=== PATIENT | female | born 1970 | race Caucasian/White ===

== ENCOUNTER 2016-06-16 11:22 | Emergency (ER) | payer MEDICAID, OTHER ==
[~2016-06-16] VITALS: Ht 154.9 cm; Wt 60.0 kg
[~2016-06-16 11:22] MED LIST: ATOR40TA PO; EFFE150C PO; FIORIC PO; LEVO.05 PO
[2016-06-16 11:24] VITALS: BP 182/112; PULSE 76; RESP 14; TEMP 97.7; O2SAT 99
[2016-06-16] MEDS ORDERED: SIMV40TA PO (11:47)
[2016-06-16] MEDS ORDERED: LEVO.05 PO (11:47)
[2016-06-16] MEDS ORDERED: BUTA1CAP PO (11:47)
[2016-06-16] MEDS ORDERED: VENL100T PO (11:47)
[2016-06-16] MEDS ORDERED: KETOROLAC TROMETHAMINE 60 MG/2 ML (IM) VIAL IM ONE (12:00)
[2016-06-16] MEDS ORDERED: NAPR500 PO (12:31)
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
== END 2016-06-16 12:48 | disposition home or self-care (01) ==
LOC: NEPB 11:22
DX: S20.219A Contusion of unspecified front wall of thorax, initial encounter (principal); F17.210 Nicotine dependence, cigarettes, uncomplicated; Y04.2XXA Assault by strike against or bumped into by another person, initial encounter
CPT/HCPCS: 71020; 96372; 99284; J1885

== ENCOUNTER 2016-09-25 09:01 | Observation (INO) | payer MEDICAID ==
[~2016-09-25] VITALS: Ht 154.9 cm; Wt 55.0 kg
[2016-09-25] VITALS (7 sets, daily range): BP systolic 123–151; BP diastolic 64–101; PULSE 75–114; RESP 16–20; TEMP 97.3–98.1; O2SAT 97–100
[~2016-09-25 09:01] MED LIST changes: -ATOR40TA PO; +BUTA1CAP PO; -EFFE150C PO; -FIORIC PO; +NAPR500 PO; +SIMV40TA PO; +VENL100T PO
[2016-09-25 09:57] LABS: AMPHETAMINE, URINE NEG (NEG); BARBITURATES, URINE POS (NEG); COCAINE, URINE POS (NEG)
[2016-09-25 10:06] LABS: AUTOMATED NEUTROPHIL # 3.5 TH/MM3 (1.8-7.7); BASOPHIL % 0.3 % (0.0-2.0); EOSINOPHIL % 0.2 % (0.0-4.0); HEMATOCRIT 37.7 % (35.0-46.0); HEMO FLAGS DIFF FINAL; LYMPH % 42.4 % (9.0-44.0); MEAN CELL VOLUME 90.5 FL (80.0-100.0); MEAN CORPUSCULAR HEMOGLOBIN 31.1 PG (27.0-34.0); MEAN CORPUSCULAR HGB CONC 34.4 % (32.0-36.0); MONO % 7.3 % (0.0-8.0); NEUT % 49.8 % (16.0-70.0); PLATELET COUNT 245 TH/MM3 (150-450); RED BLOOD COUNT 4.16 MIL/MM3 (4.00-5.30); RED CELL DISTRIBUTION WIDTH 13.4 % (11.6-17.2); WHITE BLOOD COUNT 7.1 TH/MM3 (4.0-11.0)
[2016-09-25 10:27] LABS: ACETAMINOPHEN 51.2 MCG/ML (10.0-30.0); ALT (GPT) 20 U/L (10-53); ANION GAP 9 MEQ/L (5-15); AST (GOT) 17 U/L (15-37); BICARBONATE 24.4 MEQ/L (21.0-32.0); BLOOD UREA NITROGEN 17 MG/DL (7-18); CHLORIDE 109 MEQ/L (98-107); GLOMERULAR FILTRATION RATE 64 ML/MIN (>89); POTASSIUM 3.4 MEQ/L (3.5-5.1); SODIUM (NA) 142 MEQ/L (136-145)
[2016-09-25 10:29] LABS: ALKALINE PHOSPHATASE 69 U/L (45-117); PHENOBARBITAL LESS THAN 2.1 MCG/ML (15.0-40.0); TOTAL BILIRUBIN ADULT 0.4 MG/DL (0.2-1.0)
[2016-09-25] MEDS ORDERED: LORazepam 2 MG/ML VIAL IM ONE (10:30)
--- NOTE | 2016-09-25 10:48 | PD ---
HPI Chief Complaint: Psychiatric Symptoms Time Seen by Provider: 09:19 Travel History International Travel<30 days: No Contact w/Intl Traveler<30days: No Traveled to known affect area: No History of Present Illness HPI This patient is a 46 y.o. white female who comes to the ED today under a Barrientos Act. Her H&P is limited secondary to disorganized behavior and unclear speech. She was mildly agitated and incoherent for much of the exam. She says her came home yesterday with crack cocaine and they had a disagreement over it. She admits to last using this substance last night. She says her asked her to go to sleep and she refused, causing a disagreement and him to call the police. She also repeatedly stated that her and mom were trying to get her in trouble. A Barrientos Act was issued, but she denies suicidal or homicidal ideation at this time. She also denies IVDA since this past August. She also denies alcohol and other illicit drug use. Denies history of medical illness, medication use and allergies. [facility] Past Medical History Narrative Medical N/C Medical History: Denies Significant Hx Bipolar Disorder: Yes Anxiety: Yes Depression: Yes Cardiovascular Problems: Yes (MVP) High Cholesterol: Yes Hiatal Hernia: Yes ?: Not : 5 Para: 3 Miscarriage: 1 : 1 Tubal Ligation: Yes Past Surgical History Abdominal Surgery: Yes (HIATAL HERNIA REPAIR) Appendectomy: Yes Cholecystectomy: Yes Other Surgery: Yes (bilateral tubal ligation) Social History Alcohol Use: No Tobacco Use: Yes (1/2 ppd) Substance Use: No (COCAINE (LAST NIGHT) MARIJUANA) Allergies-Medications (Allergen,Severity, Reaction): Coded Allergies: Keflex (Verified Allergy, Intermediate, HIVES, 06/16/16) Reported Meds & Prescriptions Reported Meds & Active Scripts Active Reported Effexor (Venlafaxine HCl) 100 Mg Tab 300 Mg PO DAILY Synthroid (Levothyroxine Sodium) 50 Mcg Tab 50 Mcg PO DAILY Simvastatin 40 Mg Tab 40 Mg PO HS Fioricet (Aykxcpsbat-Opnbkesrmxgxo-Seztbstu) 50-300-40 Mg Cap 1 Cap PO Q6H PRN Review of Systems Except as stated in HPI: all other systems reviewed are Neg Physical Exam Narrative GENERAL: Alert and oriented to person, place and time. Agitated, constantly moving during exam. Incoherent speech. SKIN: Warm and dry. HEAD: Atraumatic. Normocephalic. EYES: Pupils equal and round. No scleral icterus. No injection or drainage. ENT: No nasal bleeding or discharge. Mucous membranes pink and moist. NECK: Trachea midline. No JVD. Tachycardia noted upon auscultation. CARDIOVASCULAR: Regular rate and rhythm. RESPIRATORY: No accessory muscle use. Clear to auscultation. Breath sounds equal bilaterally. GASTROINTESTINAL: Abdomen soft, non-tender, nondistended. Hepatic and splenic margins not palpable. MUSCULOSKELETAL: Extremities without clubbing, cyanosis, or edema. No obvious deformities. NEUROLOGICAL: Awake and alert. No obvious cranial nerve deficits. Motor grossly within normal limits. Five out of 5 muscle strength in the arms and legs. Normal speech. PSYCHIATRIC: Appropriate mood and affect; insight and judgment normal. Data Data Last Documented VS Vital Signs Date Time Temp Pulse Resp B/P Pulse Ox O2 Delivery O2 Flow Rate FiO2 09/25/16 11:24 102 16 151/88 99 Room Air 09/25/16 09:10 98.1 Orders Complete Blood Count With Diff (09/25/16 09:20) Comprehensive Metabolic Panel (09/25/16 09:20) Psych Screen (09/25/16 09:20) Phenobarbital (09/25/16 09:20) Drug Screen, Random Urine (09/25/16 09:20) Alcohol (Ethanol) (09/25/16 09:20) Salicylates (Aspirin) (09/25/16 09:20) Tylenol (Acetaminophen) (09/25/16 09:20) Lorazepam Inj (Ativan Inj) (09/25/16 10:30) Admit Order (Ed Use Only) (09/25/16 11:40) Labs Laboratory Tests Test 09/25/16 09/25/16 09:30 09:45 Urine Opiates Screen NEG Urine Barbiturates Screen POS Urine Amphetamines Screen NEG Urine Benzodiazepines Screen NEG Urine Cocaine Screen POS Urine Cannabinoids Screen POS White Blood Count 7.1 TH/MM3 Red Blood Count 4.16 MIL/MM3 Hemoglobin 13.0 GM/DL Hematocrit 37.7 % Mean Corpuscular Volume 90.5 FL Mean Corpuscular Hemoglobin 31.1 PG Mean Corpuscular Hemoglobin 34.4 % Concent Red Cell Distribution Width 13.4 % Platelet Count 245 TH/MM3 Mean Platelet Volume 9.6 FL Neutrophils (%) (Auto) 49.8 % Lymphocytes (%) (Auto) 42.4 % Monocytes (%) (Auto) 7.3 % Eosinophils (%) (Auto) 0.2 % Basophils (%) (Auto) 0.3 % Neutrophils # (Auto) 3.5 TH/MM3 Lymphocytes # (Auto) 3.0 TH/MM3 Monocytes # (Auto) 0.5 TH/MM3 Eosinophils # (Auto) 0.0 TH/MM3 Basophils # (Auto) 0.0 TH/MM3 CBC Comment DIFF FINAL Differential Comment Sodium Level 142 MEQ/L Potassium Level 3.4 MEQ/L Chloride Level 109 MEQ/L Carbon Dioxide Level 24.4 MEQ/L Anion Gap 9 MEQ/L Blood Urea Nitrogen 17 MG/DL Creatinine 0.95 MG/DL Estimat Glomerular Filtration 64 ML/MIN Rate Random Glucose 123 MG/DL Calcium Level 9.4 MG/DL Total Bilirubin 0.4 MG/DL Aspartate Amino Transf 17 U/L (AST/SGOT) Alanine Aminotransferase 20 U/L (ALT/SGPT) Alkaline Phosphatase 69 U/L Total Protein 7.7 GM/DL Albumin 4.0 GM/DL Salicylates Level 3.6 MG/DL Acetaminophen Level 51.2 MCG/ML Phenobarbital Level LESS THAN 2.1 MCG/ML Ethyl Alcohol Level LESS THAN 3 MG/DL MDM Medical Decision Making Medical Screen Exam Complete: Yes Emergency Medical Condition: Yes Medical Record Reviewed: Yes Differential Diagnosis Altered mental status/psychosis due to infection/environmental exposure/ metabolic abnormality, polypharmacy, alcohol abuse/intoxication, illicit or prescribed drug abuse, malingering/secondary gain, non-organic psychiatric disease Narrative Course CBC & BMP Diagram 09/25/16 09:45 LFTs: normal UA: no UTI U Drug Screen: positive for barbiturates, cocaine and cannabinoids APAP 51.2 Salicylates: unremarkable EtOH < 3 Patient has an elevated Tylenol level. At 10:46 AM she appears agitated though reasonably cooperative. She states she last took the Fioricet which she takes daily at 5 PM last night, approximately 17.5 hours prior. Her abdominal exam is benign and as we can see the LFTs are normal. Given the fact that she is a poor story and presents with multiple drug intoxication initiation of N- acetylcysteine is considered indicated. She is hemodynamically stable and management by the hospitalist service with telemetry is considered appropriate at this time. D/w Dr Santos for [facility]. Critical Care Narrative Aggregate critical care time was 35 minutes. Time to perform other separately billable procedures was not included in the critical care time. My time did not include minutes spent treating any other patients simultaneously or on activities that did not directly contribute to the patient's treatment. The services I provided to this patient were to treat and/or prevent clinically significant deterioration that could result in: Multiorgan failure, liver failure I provided critical care services requiring my management, as noted below: Chart data review, documentation time, medication orders and management, vital sign assessments/reviewing monitor data, ordering and reviewing lab tests, ordering and interpreting/reviewing x-rays and diagnostic studies, care of the patient and discussion of the patient with the admitting physicians. Diagnosis Primary Impression: Tylenol toxicity Qualified Code: T39.1X4A - Tylenol toxicity, undetermined intent, initial encounter Additional Impressions: Polysubstance abuse Suicidal ideation Admitting Information Admitting Physician Requests: Admit Maximilian Lebron MD Sep 25, 2016 10:48
[2016-09-25] MEDS ORDERED: WATER IV SCH ×2 (11:45)
[2016-09-25] MEDS ORDERED: ACETYLCYSTEINE IV SCH ×6 (11:45→16:45)
[2016-09-25] MEDS ORDERED: DEXTROSE 5% IV SCH ×6 (11:45→16:45)
[2016-09-25] MEDS ORDERED: SENNOSIDES 8.6 MG TAB PO PRN (12:00)
[2016-09-25] MEDS ORDERED: BISACODYL 10 MG SUPP RECTAL PRN (12:00)
[2016-09-25] MEDS ORDERED: LACTULOSE SYRUP 20 GM/30 ML CUP PO PRN (12:00)
[2016-09-25] MEDS ORDERED: SODIUM CHLORIDE 0.9% FLUSH 10 ML FLUSH IV FLUSH PRN (12:00)
[2016-09-25] MEDS ORDERED: MAGNESIUM HYDROXIDE SUSP 30 ML CUP PO PRN (12:00)
[2016-09-25] MEDS ORDERED: ONDANSETRON HCL 4 MG/2 ML VIAL IVP PRN (12:00)
--- NOTE | 2016-09-25 12:27 | HHI.HP ---
[facility] Service [facility] Hospitalists Primary Care Physician Thor Sandoval Admission Diagnosis Tylenol Toxicity, PSA, Suicidal Ideation Diagnoses: Chief Complaint: agitation, Barrientos Act Travel History International Travel<30 Days: No Contact w/Intl Traveler <30 Da: No Traveled to Known Affected Are: No History of Present Illness Written by Rachell Morgan, acting as scribe for Dr. Santos on 09/25/16 at 12:25. This note was transcribed by scribe Rachell NEVAREZ. I, Dr. Kristina Santos personally performed the history, physical exam, and medical decision making; and confirmed the accuracy of the information in the transcribed note. Authenticated by Dr. Kristina Santos on 09/25/16 at 12:25. 46-year-old female with history of polysubstance abuse, IVDU, presents to the emergency room 09/25 under Barrientos Act. The patient awake, alert, oriented to self , [facility] in [place], [place], President Kacey, and the year however patient with tangential thoughts, rambling speech, not making much sense; therefore history is very limited. She admits to taking her Effexor, Synthroid , and a "stomach pill". The patient denies taking any illicit drugs recently however states her typical drug of choice is crystal meth but now her turned her onto crack. 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 The patient became agitated during conversation, pulled out her IV, flung the IV across the room, and ran off to the bathroom where she started crying. No further history was able to be obtained. Per ER MD note, the patient told him her came home yesterday with crack cocaine and they had a disagreement over it. She says her asked her to go to sleep and she refused, causing a disagreement and him to call the police. She also repeatedly stated that her and mom were trying to get her in trouble. Review of Systems ROS Limitations: Intoxication, Altered Mental Status, Uncooperative, Combative , Poor Historian Past Family Social History Past Medical History Hypothyroidism Hyperlipidemia Depression Past Surgical History Appendectomy Cholecystectomy Hiatal hernia repair Tubal ligation Reported Medications Effexor (Venlafaxine HCl) 100 Mg Tab 300 Mg PO DAILY Synthroid (Levothyroxine Sodium) 50 Mcg Tab 50 Mcg PO DAILY Simvastatin 40 Mg Tab 40 Mg PO HS Fioricet (Pngsmmzfjw-Orhrrpvpvhkwe-Cqpglprh) 50-300-40 Mg Cap 1 Cap PO Q6H PRN Allergies: Coded Allergies: Keflex (Verified Allergy, Intermediate, HIVES, 06/16/16) Active Ordered Medications Current Medications Medications (Trade) Dose Ordered Sig/Ganesh Route Start Time Stop Time Status Last Admin Acetylcysteine 8250 mg/Dextrose 241.25 ml @ 200 mls/ hr ONCE IV 09/25/16 11:45 09/25/16 12:44 Acetylcysteine 2750 mg/Dextrose 513.75 ml @ 125 mls/ hr ONCE IV 09/25/16 12:45 09/25/16 16:44 Acetylcysteine 5500 mg/Dextrose 1,027.5 ml @ 62.5 mls/ hr ONCE IV 09/25/16 16:45 09/26/16 08:44 (NS 1000 ml Inj) 1,000 ml @ 100 mls/hr Q10H IV 09/25/16 11:58 (NS Flush) 2 ml UNSCH PRN IV FLUSH 09/25/16 12:00 (NS Flush) 2 ml BID IV FLUSH 09/25/16 21:00 (Zofran Inj) 4 mg Q6H PRN IVP 09/25/16 12:00 (Lovenox Inj) 40 mg Q24H SQ 09/25/16 13:00 (Veronica-Colace) 1 tab BID PO 09/25/16 21:00 (Milk Of Magnesia Liq) 30 ml Q12H PRN PO 09/25/16 12:00 (Senokot) 17.2 mg Q12H PRN PO 09/25/16 12:00 (Dulcolax Supp) 10 mg DAILY PRN RECTAL 09/25/16 12:00 (Lactulose Liq) 30 ml DAILY PRN PO 09/25/16 12:00 Family History Patient does not know her family's medical history, states because she's the "black sheep" of the family Social History Smokes tobacco 1.5 PPD since age 10 Denies any alcohol use +Polysubstance abuse with crystal meth and crack cocaine; although denies IVDU since August Physical Exam Vital Signs Vital Signs Date Time Temp Pulse Resp B/P Pulse Ox O2 Delivery O2 Flow Rate FiO2 09/25/16 11:24 102 16 151/88 99 Room Air 09/25/16 09:10 98.1 114 16 123/95 100 Physical Exam GENERAL: Well-nourished, well-developed middle aged female patient in NAD. Very fidgety, constantly moving throughout exam. SKIN: Warm and dry. No rash. HEAD: Normocephalic. Atraumatic. EYES: Pupils equal and round. No scleral icterus. No injection or drainage. ENT: No nasal bleeding or discharge. Mucous membranes pink and moist. NECK: Supple. Trachea midline. CARDIOVASCULAR: Regular rate and rhythm. S1, S2 noted. No murmur appreciated. RESPIRATORY: No accessory muscle use. Clear to auscultation. Breath sounds equal bilaterally. GASTROINTESTINAL: Abdomen soft, non-tender, nondistended. Normoactive bowel sounds x4. MUSCULOSKELETAL: No obvious deformities. Extremities without clubbing, cyanosis , or edema. NEUROLOGICAL: Awake and alert, oriented x4. No obvious cranial nerve deficits. Motor grossly within normal limits. Incoherent speech at times. PSYCHIATRIC: Anxious and agitated mood; insight and judgment limited at this time. Laboratory Laboratory Tests Test 09/25/16 09/25/16 09:30 09:45 Urine Opiates Screen NEG Urine Barbiturates Screen POS Urine Amphetamines Screen NEG Urine Benzodiazepines Screen NEG Urine Cocaine Screen POS Urine Cannabinoids Screen POS White Blood Count 7.1 Red Blood Count 4.16 Hemoglobin 13.0 Hematocrit 37.7 Mean Corpuscular Volume 90.5 Mean Corpuscular Hemoglobin 31.1 Mean Corpuscular Hemoglobin 34.4 Concent Red Cell Distribution Width 13.4 Platelet Count 245 Mean Platelet Volume 9.6 Neutrophils (%) (Auto) 49.8 Lymphocytes (%) (Auto) 42.4 Monocytes (%) (Auto) 7.3 Eosinophils (%) (Auto) 0.2 Basophils (%) (Auto) 0.3 Neutrophils # (Auto) 3.5 Lymphocytes # (Auto) 3.0 Monocytes # (Auto) 0.5 Eosinophils # (Auto) 0.0 Basophils # (Auto) 0.0 CBC Comment DIFF FINAL Differential Comment Sodium Level 142 Potassium Level 3.4 Chloride Level 109 Carbon Dioxide Level 24.4 Anion Gap 9 Blood Urea Nitrogen 17 Creatinine 0.95 Estimat Glomerular Filtration 64 Rate Random Glucose 123 Calcium Level 9.4 Total Bilirubin 0.4 Aspartate Amino Transf 17 (AST/SGOT) Alanine Aminotransferase 20 (ALT/SGPT) Alkaline Phosphatase 69 Total Protein 7.7 Albumin 4.0 Salicylates Level 3.6 Acetaminophen Level 51.2 Phenobarbital Level LESS THAN 2.1 Ethyl Alcohol Level LESS THAN 3 Result Diagram: 09/25/1694409/25/16944 Assessment and Plan Problem List: (1) Tylenol toxicity ICD Code: T39.1X1A Status: Acute (2) Polysubstance abuse ICD Code: F19.10 Status: Acute (3) Toxic encephalopathy ICD Code: G92 Status: Acute Assessment and Plan 46-year-old female with history of polysubstance abuse, IVDU, presents to the emergency room 09/25 under Barrientos Act. Tylenol Toxicity: Tylenol level 51.2. Suspect secondary to overuse of Fioricet, patient states she only took 1 tab yesterday around 5pm however unreliable historian. Started on N-acetylcysteine. Poison control contacted. Monitor serial APAP levels. LFTs currently wnl, will continue to monitor. Agitation/Suicidal Ideation: with Barrientos Act in place. Suspect secondary to polysubstance abuse. Also reports of suicidal ideations. Consult psychiatry. Continue sitter and restraints. Polysubstance abuse: patient admits to crystal meth and crack cocaine use. UDS positive for barbituates, cocaine, and cannabinoids. Will drug counselor on cessation when patient is more coherent. Toxic Encephalopathy: secondary to drug abuse. Continue IVF. Monitor neuro checks. DVT Prophylaxis: Lovenox Discussed Condition With patient. nurse Dr Maximilian Duran ED physician Problem Qualifiers (1) Tylenol toxicity: Qualified Code: T39.1X4A - Tylenol toxicity, undetermined intent, initial encounter Rachell Morgan PA-C Sep 25, 2016 12:27 Kristina Santos MD Sep 25, 2016 14:50
[2016-09-25] MEDS ORDERED: WATE IV SCH ×4 (12:45→16:45)
[2016-09-25] MEDS ORDERED: LORazepam 1 MG TAB PO PRN (14:00)
[2016-09-25] MEDS ORDERED: FLUMAZENIL 0.5 MG/5 ML VIAL IV PUSH PRN (14:00)
[2016-09-25] MEDS ORDERED: LORazepam 2 MG/ML VIAL IV PUSH PRN ×4 (14:00)
[2016-09-25] MEDS ORDERED: LORazepam 2 MG TAB PO PRN (14:00)
--- NOTE | 2016-09-25 14:11 | PD.CONS ---
Provisional Diagnosis Admission Date Sep 25, 2016 at 11:43 Bern I. Acute polysubstance intoxication, Cocaine, THC, Sruthi, Substance induced mood disorder, Cocaine, THC, hypnotic-sedative use disorder, Hx of depression Bern II. deferred Bern III. Hypothyroidism History of Present Illness Service Psychiatry Consult Requested By Primary Care Physician Thor KONG The patient is a 46 year-old woman, with PPHx of depression, SAs, polysubstance dependance, including cocaine, cannabis, hypnotic-sedatives, Hx of IV drugs, PMHx of hypothyroidism, who comes to the ED today under a Barrientos Act due to OD. On ER "She says her came home yesterday with crack cocaine and they had a disagreement over it. She admits to last using this substance last night. She says her asked her to go to sleep and she refused, causing a disagreement and him to call the police. She also repeatedly stated that her and mom were trying to get her in trouble. A Barrientos Act was issued, but she denies suicidal or homicidal ideation at this time. She also denies IVDA since this past August. She also denies alcohol and other illicit drug use. Denies history of medical illness, medication use and allergies". Utox is Vicki, thc,bar. On psychiatric evaluation incoherent, restrained in 4 points, agitated, no making sense unable to provide any meaningful information for psychiatric assessment at this time. Collateral form , Jason Cheng obtained, . He clarifies patient regularly abuses cocaine and cannabis, she also might be abusing Fioricet,she is getting prescriptions form Doctors, but is not clear about the indication, but definitely using more than recommended, he says. He confirms argument yesterday. Unclear if overdosed with SI. Past Family Social History Coded Allergies: Keflex (Verified Allergy, Intermediate, HIVES, 06/16/16) Reported Medications Venlafaxine (Effexor)100 Mg Bit120 Mg PO DAILY #60 TAB Ref 0 06/16/16 Levothyroxine (Synthroid)50 Mcg Tab50 Mcg PO DAILY #30 TAB Ref 0 06/16/16 Simvastatin 40 Mg Tab40 Mg PO HS #30 TAB Ref 0 06/16/16 Mimmhfuimr-Cvisseyypltri-Xncwavxt (Fioricet)50-300-40 Mg Cap1 Cap PO Q6H PRN ( HEADACHE) Ref 0 06/16/16 Discontinued Scripts Naproxen (Naprosyn)500 Mg Wyl707 Mg PO BID PRN (PAIN SCALE 1 TO 10) #20 TAB Prov:Winston Maddox MD 06/16/16 Current Medications Medications (Trade) Dose Ordered Sig/Ganesh Route Start Time Stop Time Status Last Admin Acetylcysteine 2750 mg/Dextrose 513.75 ml @ 125 mls/ hr ONCE IV 09/25/16 12:45 09/25/16 16:44 Acetylcysteine 5500 mg/Dextrose 1,027.5 ml @ 62.5 mls/ hr ONCE IV 09/25/16 16:45 09/26/16 08:44 (NS 1000 ml Inj) 1,000 ml @ 100 mls/hr Q10H IV 09/25/16 11:58 (NS Flush) 2 ml UNSCH PRN IV FLUSH 09/25/16 12:00 (NS Flush) 2 ml BID IV FLUSH 09/25/16 21:00 (Zofran Inj) 4 mg Q6H PRN IVP 09/25/16 12:00 (Lovenox Inj) 40 mg Q24H SQ 09/25/16 13:00 (Veronica-Colace) 1 tab BID PO 09/25/16 21:00 (Milk Of Magnesia Liq) 30 ml Q12H PRN PO 09/25/16 12:00 (Senokot) 17.2 mg Q12H PRN PO 09/25/16 12:00 (Dulcolax Supp) 10 mg DAILY PRN RECTAL 09/25/16 12:00 (Lactulose Liq) 30 ml DAILY PRN PO 09/25/16 12:00 Family History Unknown Social History Patient was born and raised in [place], lives in [facility] with , unemployed, on SSI, Patient's Strengths (min. 2) under observation Physical Exam Vital Signs Vital Signs Date Time Temp Pulse Resp B/P Pulse Ox O2 Delivery O2 Flow Rate FiO2 09/25/16 12:54 110 18 137/101 Room Air 09/25/16 11:24 99 09/25/16 09:10 98.1 Lab Results Labs Laboratory Tests Test 09/25/16 09/25/16 09:30 09:45 Urine Opiates Screen NEG Urine Barbiturates Screen POS Urine Amphetamines Screen NEG Urine Benzodiazepines Screen NEG Urine Cocaine Screen POS Urine Cannabinoids Screen POS White Blood Count 7.1 TH/MM3 Red Blood Count 4.16 MIL/MM3 Hemoglobin 13.0 GM/DL Hematocrit 37.7 % Mean Corpuscular Volume 90.5 FL Mean Corpuscular Hemoglobin 31.1 PG Mean Corpuscular Hemoglobin 34.4 % Concent Red Cell Distribution Width 13.4 % Platelet Count 245 TH/MM3 Mean Platelet Volume 9.6 FL Neutrophils (%) (Auto) 49.8 % Lymphocytes (%) (Auto) 42.4 % Monocytes (%) (Auto) 7.3 % Eosinophils (%) (Auto) 0.2 % Basophils (%) (Auto) 0.3 % Neutrophils # (Auto) 3.5 TH/MM3 Lymphocytes # (Auto) 3.0 TH/MM3 Monocytes # (Auto) 0.5 TH/MM3 Eosinophils # (Auto) 0.0 TH/MM3 Basophils # (Auto) 0.0 TH/MM3 CBC Comment DIFF FINAL Differential Comment Sodium Level 142 MEQ/L Potassium Level 3.4 MEQ/L Chloride Level 109 MEQ/L Carbon Dioxide Level 24.4 MEQ/L Anion Gap 9 MEQ/L Blood Urea Nitrogen 17 MG/DL Creatinine 0.95 MG/DL Estimat Glomerular Filtration 64 ML/MIN Rate Random Glucose 123 MG/DL Calcium Level 9.4 MG/DL Total Bilirubin 0.4 MG/DL Aspartate Amino Transf 17 U/L (AST/SGOT) Alanine Aminotransferase 20 U/L (ALT/SGPT) Alkaline Phosphatase 69 U/L Total Protein 7.7 GM/DL Albumin 4.0 GM/DL Salicylates Level 3.6 MG/DL Acetaminophen Level 51.2 MCG/ML Phenobarbital Level LESS THAN 2.1 MCG/ML Ethyl Alcohol Level LESS THAN 3 MG/DL Mental Status Examination limited due to level of intoxication Appearance woman, multiple tattoos, restrained 4 points, uncooperative, intoxicated Speech: Incoherent Assessment & Plan Problem List: (1) Polysubstance abuse Assessment & Plan: Patient is incoherent and too disorganized due to intoxication to provide any meaningful information for psychiatric assessment at this time. Will leave BA in place/active until reevaluated. Since patient has been potentially abusing Fioricet, withdrawal must be monitor , CIWA in place Haldol 5 mf IM Q/8/Ativan 2 mg PRN agitation and aggressive behavior Keep Sitter in the medical floor. ICD Code: F19.10 Assessment & Plan Estimated LOS: Dawit Peralta MD Sep 25, 2016 14:11
[2016-09-25] MEDS: SODIUM CHLOR 0.9% 1000 ML INJ 1,000 ML IV SCH ×2 (15:34→19:20)
[2016-09-25 15:41] LABS: ACETAMINOPHEN 8.6 MCG/ML (10.0-30.0); ALT (GPT) 28 U/L (10-53); ANION GAP 15 MEQ/L (5-15); AST (GOT) 16 U/L (15-37); BLOOD UREA NITROGEN 14 MG/DL (7-18); CHLORIDE 107 MEQ/L (98-107); GLOMERULAR FILTRATION RATE 72 ML/MIN (>89); POTASSIUM 3.6 MEQ/L (3.5-5.1); SODIUM (NA) 145 MEQ/L (136-145)
[2016-09-25 15:43] LABS: ALKALINE PHOSPHATASE 58 U/L (45-117); TOTAL BILIRUBIN ADULT 0.6 MG/DL (0.2-1.0)
[2016-09-25] MEDS: ENOXAPARIN SODIUM 40 MG/0.4 ML SYRINGE SQ SCH (15:49)
[2016-09-25] MEDS ORDERED: NICOTINE 21 MG/24 HR PATCH T-DERMAL ONE (16:30)
[2016-09-25] MEDS: SODIUM CHLORIDE 0.9% FLUSH 10 ML FLUSH IV FLUSH SCH (19:19)
[2016-09-25] MEDS: DOCUSATE SODIUM 50 MG/SENNA 8.6 MG TAB PO SCH (19:20)
[2016-09-25 20:25] LABS: APTT (PATIENT) 27.4 SEC (24.3-30.1); INTERNATIONAL NORMALIZED RATIO 1.1 RATIO
[2016-09-25 20:34] LABS: ACETAMINOPHEN LESS THAN 2.0 MCG/ML (10.0-30.0); ALT (GPT) 25 U/L (10-53); AST (GOT) 23 U/L (15-37)
[2016-09-25 20:36] LABS: ALKALINE PHOSPHATASE 63 U/L (45-117); INDIRECT BILIRUBIN 0.4 MG/DL (0.0-0.8); TOTAL BILIRUBIN ADULT 0.5 MG/DL (0.2-1.0)
[2016-09-26] VITALS (8 sets, daily range): BP systolic 98–115; BP diastolic 53–81; PULSE 53–60; RESP 18–20; TEMP 96.3–97.8; O2SAT 96–99
[2016-09-26] MEDS: SODIUM CHLOR 0.9% 1000 ML INJ 1,000 ML IV SCH ×2 (04:17→16:15)
[2016-09-26 05:09] LABS: AUTOMATED NEUTROPHIL # 1.3 TH/MM3 (1.8-7.7); BASOPHIL % 0.4 % (0.0-2.0); LYMPH % 64.4 % (9.0-44.0); LYMPHOCYTE # 3.3 TH/MM3 (1.0-4.8); MEAN CELL VOLUME 91.6 FL (80.0-100.0); MEAN CORPUSCULAR HEMOGLOBIN 31.3 PG (27.0-34.0); MEAN CORPUSCULAR HGB CONC 34.2 % (32.0-36.0); MONO % 8.6 % (0.0-8.0); NEUT % 25.6 % (16.0-70.0); PLATELET COUNT 204 TH/MM3 (150-450); RED BLOOD COUNT 3.93 MIL/MM3 (4.00-5.30); RED CELL DISTRIBUTION WIDTH 13.2 % (11.6-17.2)
[2016-09-26 05:18] LABS: HEMO FLAGS AUTO DIFF
[2016-09-26 05:35] LABS: ALT (GPT) 16 U/L (10-53); ANION GAP 9 MEQ/L (5-15); AST (GOT) 17 U/L (15-37); BICARBONATE 23.5 MEQ/L (21.0-32.0); BLOOD UREA NITROGEN 9 MG/DL (7-18); CHLORIDE 111 MEQ/L (98-107); GLOMERULAR FILTRATION RATE 108 ML/MIN (>89); POTASSIUM 3.4 MEQ/L (3.5-5.1); SODIUM (NA) 143 MEQ/L (136-145)
[2016-09-26 05:38] LABS: ALKALINE PHOSPHATASE 60 U/L (45-117); TOTAL BILIRUBIN ADULT 0.7 MG/DL (0.2-1.0)
[2016-09-26 05:41] LABS: PLATELET ESTIMATE SMEAR NORMAL (NORMAL); PLATELET MORPHOLOGY NORMAL (NORMAL); SCAN/DIFF AUTO DIFF CONFIRMED
[2016-09-26] MEDS: SODIUM CHLORIDE 0.9% FLUSH 10 ML FLUSH IV FLUSH SCH ×2 (09:00→20:44)
[2016-09-26] MEDS: DOCUSATE SODIUM 50 MG/SENNA 8.6 MG TAB PO SCH ×2 (09:02→20:43)
--- NOTE | 2016-09-26 12:07 | EKG ---
Date Performed: 09/25/2016 Time Performed: 13:26:05 PTAGE: 46 years EKG: Sinus rhythm POSSIBLE LEFT ATRIAL ENLARGEMENT Poor quality tracing. Probably no change from the prior tracing. Clinical correlation is recommended. ABNORMAL ECG PREVIOUS TRACING : 09/23/2015 10.37 DOCTOR: Landon Ivory Interpretating Date/Time 09/26/2016 12:05:49
--- NOTE | 2016-09-26 12:33 | HHI.PR ---
Subjective Remarks Patient sleepy, however wakes up when called by name. Appears drowsy but in no apparent distress. She denies nausea, vomiting, diarrhea or constipation. No abdominal pain. Denies any sob or chest pain. She has been able to eat. She has no new complaints. Objective Vitals Vital Signs Date Time Temp Pulse Resp B/P Pulse Ox O2 Delivery O2 Flow Rate FiO2 09/26/16 11:21 98 21 09/26/16 08:00 96.3 53 18 113/64 98 09/26/16 00:00 97.2 60 20 115/81 99 09/25/16 21:15 21 09/25/16 20:00 97.9 75 20 128/84 98 09/25/16 16:12 132/64 09/25/16 16:00 97.3 87 19 137/88 97 09/25/16 15:35 90 16 137/87 96 09/25/16 12:54 110 18 137/101 Room Air I/O 09/25/16 09/25/16 09/25/16 09/26/16 09/26/16 09/26/16 07:00 15:00 23:00 07:00 15:00 23:00 Intake Total 500 ml 1000 ml 762 ml Balance 500 ml 1000 ml 762 ml Intake IV Total 500 ml 1000 ml 762 ml # Voids 1 # Bowel Movements 0 Result Diagram: 09/26/168 09/26/168 Objective Remarks GENERAL: 46 yo female, well-nourished, well-developed, appears sleepy. Off restraints at this time. Follows commands. HEAD: Normocephalic. Atraumatic. ENT: No nasal bleeding or discharge. CARDIOVASCULAR: Regular rate and rhythm. S1, S2 noted. No murmur appreciated. RESPIRATORY: No accessory muscle use. Clear to auscultation. Breath sounds equal bilaterally. GASTROINTESTINAL: Abdomen soft, non-tender, nondistended. Normoactive bowel sounds x4. MUSCULOSKELETAL: No obvious deformities. Extremities without clubbing, cyanosis , or edema. NEUROLOGICAL: Awake and alert. No obvious cranial nerve deficits. Follows commands. Minimal speech but responding to commands and nodding head for agreement PSYCHIATRIC: Sleepy, flat affect. A/P Problem List: (1) Tylenol toxicity ICD Code: T39.1X1A Status: Acute (2) Polysubstance abuse ICD Code: F19.10 Status: Acute (3) Toxic encephalopathy ICD Code: G92 Status: Acute Assessment and Plan 46-year-old female with history of polysubstance abuse, IVDU, presents to the emergency room 09/25 under Barrientos Act. Tylenol Toxicity: Tylenol level 51.2 on admission. Started on NAC 09/25; today Tylenol level is <2mcg/mL. Poison control contacted 09/25 LFTs currently wnl Agitation/Suicidal Ideation: with Barrientos Act in place. Suspect secondary to polysubstance abuse. Also reports of suicidal ideations. Psychiatry consulted; unable to properly assess due patient being incoherent and too disorganized to provide meaningful information for psychiatric assessment. Recommended keeping BA in place/ active until reevaluated. Since patient has been potentially abusing Fioricet, withdrawal must be monitor , CIWA in place. Haldol 5 mf IM Q/8/Ativan 2 mg PRN agitation and aggressive behavior Keep Sitter in the medical floor. Restraints discontinued; may restart if patient becomes unsafe for self or other Polysubstance abuse: patient admits to crystal meth and crack cocaine use. UDS positive for barbituates, cocaine, and cannabinoids. 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 Toxic Encephalopathy: secondary to drug abuse. Continue IVF. Monitor neuro checks. Hypokalemia: Potassium 3.4; replace by mouth Discussed with the patient and the nurse Discussed with the case management. Patient doesn't meet inpatient criteria. Change admission to observation status per case management recommendations. DC plan : Appears stable, cleared medically for discharge. BA still in place . Psych following Problem Qualifiers (1) Tylenol toxicity: Qualified Code: T39.1X4A - Tylenol toxicity, undetermined intent, initial encounter Kristina Santos MD Sep 26, 2016 12:32
[2016-09-26] MEDS: ENOXAPARIN SODIUM 40 MG/0.4 ML SYRINGE SQ SCH (13:08)
--- NOTE | 2016-09-26 13:37 | PD.PN.STU ---
Subjective Remarks Follow-up for Tylenol toxicity. Patient sleeping but awoke when addressed. Appears drowsy but in no apparent distress. She denies nausea, vomiting, and chest pain. She has been able to eat without trouble. She has no new complaints. Objective Vitals Vital Signs Date Time Temp Pulse Resp B/P Pulse Ox O2 Delivery O2 Flow Rate FiO2 09/26/16 12:00 96.7 58 19 98/65 97 09/26/16 11:21 98 21 09/26/16 08:00 96.3 53 18 113/64 98 09/26/16 00:00 97.2 60 20 115/81 99 09/25/16 21:15 21 09/25/16 20:00 97.9 75 20 128/84 98 09/25/16 16:12 132/64 09/25/16 16:00 97.3 87 19 137/88 97 09/25/16 15:35 90 16 137/87 96 I/O 09/25/16 09/25/16 09/25/16 09/26/16 09/26/16 09/26/16 07:00 15:00 23:00 07:00 15:00 23:00 Intake Total 500 ml 1000 ml 762 ml Balance 500 ml 1000 ml 762 ml Intake IV Total 500 ml 1000 ml 762 ml # Voids 1 # Bowel Movements 0 Result Diagram: 09/26/16 0448 09/26/16 0448 Other Results Laboratory Tests Test 09/25/16 09/25/16 09/26/16 14:35 19:46 04:48 Sodium Level 145 MEQ/L 143 MEQ/L Potassium Level 3.6 MEQ/L 3.4 MEQ/L Chloride Level 107 MEQ/L 111 MEQ/L Carbon Dioxide Level 23.0 MEQ/L 23.5 MEQ/L Anion Gap 15 MEQ/L 9 MEQ/L Blood Urea Nitrogen 14 MG/DL 9 MG/DL Creatinine 0.85 MG/DL 0.60 MG/DL Estimat Glomerular Filtration 72 ML/MIN 108 ML/MIN Rate Random Glucose 107 MG/DL 72 MG/DL Calcium Level 9.2 MG/DL 9.0 MG/DL Total Bilirubin 0.6 MG/DL 0.5 MG/DL 0.7 MG/DL Aspartate Amino Transf 16 U/L 23 U/L 17 U/L (AST/SGOT) Alanine Aminotransferase 28 U/L 25 U/L 16 U/L (ALT/SGPT) Alkaline Phosphatase 58 U/L 63 U/L 60 U/L Total Protein 7.4 GM/DL 7.4 GM/DL 6.5 GM/DL Albumin 3.7 GM/DL 3.5 GM/DL 3.2 GM/DL Acetaminophen Level 8.6 MCG/ML LESS THAN 2.0 MCG/ML Prothrombin Time 12.0 SEC Prothromb Time International 1.1 RATIO Ratio Activated Partial 27.4 SEC Thromboplast Time Direct Bilirubin 0.1 MG/DL Indirect Bilirubin 0.4 MG/DL Red Blood Count 3.93 MIL/MM3 Mean Corpuscular Volume 91.6 FL Mean Corpuscular Hemoglobin 31.3 PG Mean Corpuscular Hemoglobin 34.2 % Concent Red Cell Distribution Width 13.2 % Mean Platelet Volume 9.3 FL Neutrophils (%) (Auto) 25.6 % Lymphocytes (%) (Auto) 64.4 % Monocytes (%) (Auto) 8.6 % Eosinophils (%) (Auto) 1.0 % Basophils (%) (Auto) 0.4 % Neutrophils # (Auto) 1.3 TH/MM3 Lymphocytes # (Auto) 3.3 TH/MM3 Monocytes # (Auto) 0.4 TH/MM3 Eosinophils # (Auto) 0.0 TH/MM3 Basophils # (Auto) 0.0 TH/MM3 CBC Comment AUTO DIFF Differential Comment AUTO DIFF CONFIRMED Platelet Estimate NORMAL Platelet Morphology Comment NORMAL Red Cell Morphology Comment NORMAL Objective Remarks Physical Exam GENERAL: Well-nourished, well-developed middle aged female patient in [facility]. Appears sleepy. HEAD: Normocephalic. Atraumatic. ENT: No nasal bleeding or discharge. CARDIOVASCULAR: Regular rate and rhythm. S1, S2 noted. No murmur appreciated. RESPIRATORY: No accessory muscle use. Clear to auscultation. Breath sounds equal bilaterally. GASTROINTESTINAL: Abdomen soft, non-tender, nondistended. Normoactive bowel sounds x4. MUSCULOSKELETAL: No obvious deformities. Extremities without clubbing, cyanosis , or edema. NEUROLOGICAL: Awake and alert. No obvious cranial nerve deficits. Minimal speech but responding to commands and nodding head for agreement PSYCHIATRIC: Lethargic but agreeable mood. Medications and IVs Current Medications Medications (Trade) Dose Ordered Sig/Agnesh Route Start Time Stop Time Status Last Admin (NS 1000 ml Inj) 1,000 ml @ 100 mls/hr Q10H IV 09/25/16 11:58 09/26/16 04:17 (NS Flush) 2 ml UNSCH PRN IV FLUSH 09/25/16 12:00 (NS Flush) 2 ml BID IV FLUSH 09/25/16 21:00 09/25/16 19:19 (Zofran Inj) 4 mg Q6H PRN IVP 09/25/16 12:00 (Lovenox Inj) 40 mg Q24H SQ 09/25/16 13:00 09/26/16 13:08 (Veronica-Colace) 1 tab BID PO 09/25/16 21:00 09/26/16 09:02 (Milk Of Magnesia Liq) 30 ml Q12H PRN PO 09/25/16 12:00 (Senokot) 17.2 mg Q12H PRN PO 09/25/16 12:00 (Dulcolax Supp) 10 mg DAILY PRN RECTAL 09/25/16 12:00 (Lactulose Liq) 30 ml DAILY PRN PO 09/25/16 12:00 (Romazicon Inj) 0.2 mg Q1M PRN IV PUSH 09/25/16 14:00 (Ativan) 1 mg Q4H PRN PO 09/25/16 14:00 09/25/16 15:31 (Ativan Inj) 1 mg Q4H PRN IV PUSH 09/25/16 14:00 (Ativan) 2 mg Q2H PRN PO 09/25/16 14:00 (Ativan Inj) 2 mg Q2H PRN IV PUSH 09/25/16 14:00 (Ativan Inj) 2 mg Q1H PRN IV PUSH 09/25/16 14:00 09/25/16 19:19 (Ativan Inj) 2 mg Q15M PRN IV PUSH 09/25/16 14:00 A/P Assessment and Plan 46-year-old female with history of polysubstance abuse, IVDU, presents to the emergency room 09/25 under Barrientos Act. Tylenol Toxicity: Tylenol level 51.2 on admission. - started on NAC 09/25; today Tylenol level is <2mcg/mL - Poison control contacted 09/25 - LFTs currently wnl Agitation/Suicidal Ideation: with Barrientos Act in place. Suspect secondary to polysubstance abuse. Also reports of suicidal ideations. - Psychiatry consulted; unable to properly assess due patient being incoherent and too disorganized to provide meaningful information for psychiatric assessment. Recommended keeping BA in place/ active until reevaluated. - Since patient has been potentially abusing Fioricet, withdrawal must be monitor, CIWA in place. Haldol 5 mf IM Q/8/Ativan 2 mg PRN agitation and aggressive behavior - Keep Sitter in the medical floor. - Restraints discontinued; may restart if patient becomes unsafe for self or other Polysubstance abuse: patient admits to crystal meth and crack cocaine use. - UDS positive for barbituates, cocaine, and cannabinoids. 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 Toxic Encephalopathy: secondary to drug abuse. Continue IVF. Monitor neuro checks. Hypokalemia: Potassium 3.4; replace by mouth Seen and discussed at length with Miss Torres MS III. Melissa Baeza Sep 26, 2016 13:37 Kristina Santos MD Sep 26, 2016 19:13
[2016-09-26 16:09] LABS: ANION GAP 6 MEQ/L (5-15); AST (GOT) 14 U/L (15-37); BICARBONATE 25.2 MEQ/L (21.0-32.0); BLOOD UREA NITROGEN 13 MG/DL (7-18); CHLORIDE 112 MEQ/L (98-107); GLOMERULAR FILTRATION RATE 117 ML/MIN (>89); POTASSIUM 3.5 MEQ/L (3.5-5.1); SODIUM (NA) 143 MEQ/L (136-145)
[2016-09-26 16:12] LABS: ACETAMINOPHEN 2.2 MCG/ML (10.0-30.0); ALKALINE PHOSPHATASE 60 U/L (45-117); ALT (GPT) 18 U/L (10-53); TOTAL BILIRUBIN ADULT 0.2 MG/DL (0.2-1.0)
[2016-09-27] MEDS: SODIUM CHLOR 0.9% 1000 ML INJ 1,000 ML IV SCH ×2 (00:12→12:30)
[2016-09-27 08:00] VITALS: BP 127/60; PULSE 54; RESP 18; TEMP 95.9; O2SAT 97
[2016-09-27] MEDS: SODIUM CHLORIDE 0.9% FLUSH 10 ML FLUSH IV FLUSH SCH (09:00)
[2016-09-27] MEDS: DOCUSATE SODIUM 50 MG/SENNA 8.6 MG TAB PO SCH (09:17)
--- NOTE | 2016-09-27 09:58 | HHI.PR ---
Subjective Remarks Patient is more coherent today and able to converse. No complaints of pain. No nausea vomiting or diarrhea. Tylenol levels have normalized. At this point there is no acute medical concerns for further toxicity. Patient is medically stable for transfer to psychiatry if this is deemed appropriate. Objective Vital Signs Date Time Temp Pulse Resp B/P Pulse Ox O2 Delivery O2 Flow Rate FiO2 09/27/16 08:00 95.9 54 18 127/60 97 09/26/16 23:29 96.7 57 19 111/53 96 09/26/16 20:15 54 09/26/16 20:00 97.2 58 19 98/53 97 09/26/16 16:00 97.8 59 18 103/69 98 09/26/16 12:00 96.7 58 19 98/65 97 09/26/16 11:21 98 21 I/O 09/26/16 09/26/16 09/26/16 09/27/16 09/27/16 09/27/16 07:00 15:00 23:00 07:00 15:00 23:00 Intake Total 762 ml 964 ml 956 ml 1046 ml Output Total 200 ml Balance 762 ml 964 ml 756 ml 1046 ml Intake Oral 240 ml 240 ml 240 ml IV Total 762 ml 724 ml 716 ml 806 ml Output Urine Total 200 ml # Voids 1 2 2 # Bowel Movements 0 2 0 Result Diagram: 09/26/16 0448 09/26/16 1516 Objective Remarks GENERAL: NAD, A&Ox3 HEAD: Normocephalic. NECK: Supple, trachea midline. No lymphadenopathy. EYES: No scleral icterus. No injection or drainage. CARDIOVASCULAR: Regular rate and rhythm without murmurs, gallops, or rubs. RESPIRATORY: Breath sounds equal bilaterally. No accessory muscle use. GASTROINTESTINAL: Abdomen soft, non-tender, nondistended. MUSCULOSKELETAL: No cyanosis, or edema. SKIN: Warm and dry. NEURO: No focal neurological deficitis. Medications and IVs Administered Medications Medications (Trade) Dose Ordered Sig/Ganesh Route PRN Reason Start Time Stop Time Status Last Admin Dose Admin Sodium Chloride (NS 1000 ml Inj) 1,000 ml @ 100 mls/hr Q10H IV 09/25/16 11:58 09/27/16 00:12 Sodium Chloride (NS Flush) 2 ml BID IV FLUSH 09/25/16 21:00 09/25/16 19:19 Enoxaparin Sodium (Lovenox Inj) 40 mg Q24H SQ 09/25/16 13:00 09/26/16 13:08 Senna/Docusate Sodium (Veronica-Colace) 1 tab BID PO 09/25/16 21:00 09/27/16 09:17 Lorazepam (Ativan) 1 mg Q4H PRN PO CIWA 8 - 10 09/25/16 14:00 09/25/16 15:31 Lorazepam (Ativan Inj) 2 mg Q1H PRN IV PUSH CIWA 15-20 09/25/16 14:00 09/25/16 19:19 A/P Problem List: (1) Polysubstance abuse ICD Code: F19.10 (2) Tylenol toxicity ICD Code: T39.1X1A (3) Toxic encephalopathy ICD Code: G92 (4) Suicidal ideation ICD Code: R45.851 Assessment and Plan Assessment and Plan 46-year-old female with history of polysubstance abuse, IVDU, admitted with Tylenol toxicity and suicidal attempt/ideations Tylenol toxicity Resolved LFTs normalize No further medical management needed at this time Agitation/Suicidal Ideation Barrientos Act in place Psychiatry following Sitter at bedside Polysubstance abuse No evidence of withdrawal today Follow clinically Toxic Encephalopathy May be related to overdose Resolving now Hypokalemia Resolved DVT prophylaxis SCDs DC plan Medically stabilized and medically cleared this point Barrientos Act remains in place Possible discharge to inpatient psychiatry Problem Qualifiers (1) Tylenol toxicity: Qualified Code: T39.1X4A - Tylenol toxicity, undetermined intent, initial encounter Maximilian Padilla MD Sep 27, 2016 09:58
[2016-09-27 12:00] VITALS: BP 121/71; PULSE 56; RESP 18; TEMP 96.7; O2SAT 97
[2016-09-27] MEDS: ENOXAPARIN SODIUM 40 MG/0.4 ML SYRINGE SQ SCH (12:29)
--- NOTE | 2016-09-27 14:28 | HHI.PYPN ---
Subjective Remarks Patient was visited today her room for psychiatric reevaluation, patient was found chatting with the one-to-one sitters, laughing, apparently in a good spirit, patient says that she feels much better today, she reports a good mood, she describes her mood as fine, however, she says that 3 days ago after an argument with her she overdosed with Fioricet with the intention to . Patient says that at this moment she does not feel suicidal, and she seems to be future oriented, but is unable to clarify and elaborate about her recent suicidal attempt. Patient seems to be minimizing symptoms and recent suicidal intentions and she doesn't seem to have a good insight of her depression and the extent of substance abuse. Patient is oriented 3, no attention or fluctuation of consciousness problems reported or observed. Patient reports the use of cocaine and marijuana, she doesn't quantify Review of Systems Other Doesn't have any somatic complaints Objective Alert: Yes [place]: Situation Mood: Calm, Depressed Affect: Euthymic Memory Intact: Immediate, Recent, Remote Hallucinations: Other (she denies) Delusions: No Delusion Type: Other (not elicited) Suicidal: Ideation (no SI) Homicidal: Ideation (no SI) Insight/Judgment Poor Labs Test 09/26/16 09/27/16 15:16 04:54 Sodium Level 143 MEQ/L Potassium Level 3.5 MEQ/L Chloride Level 112 MEQ/L Carbon Dioxide Level 25.2 MEQ/L Anion Gap 6 MEQ/L Blood Urea Nitrogen 13 MG/DL Creatinine 0.56 MG/DL Estimat Glomerular Filtration 117 ML/MIN Rate Random Glucose 116 MG/DL Calcium Level 8.4 MG/DL Total Bilirubin 0.2 MG/DL Aspartate Amino Transf 14 U/L (AST/SGOT) Alanine Aminotransferase 18 U/L (ALT/SGPT) Alkaline Phosphatase 60 U/L Total Protein 5.7 GM/DL Albumin 2.9 GM/DL Acetaminophen Level 2.2 MCG/ML 2.9 MCG/ML Vitals/IOs Vital Signs Date Time Temp Pulse Resp B/P Pulse Ox O2 Delivery O2 Flow Rate FiO2 09/27/16 12:00 96.7 56 18 121/71 97 09/26/16 11:21 21 09/25/16 12:54 Room Air Intake and Output 09/26/16 09/26/16 09/27/16 08:00 16:00 00:00 Intake Total 762 ml 964 ml 956 ml Output Total 200 ml Balance 762 ml 964 ml 756 ml Assessment & Plan Problem List: (1) Polysubstance abuse ICD Code: F19.10 (2) Adjustment disorder with depressed mood Assessment & Plan: Patient has a reason very serious and highly lethal suicidal attempt by overdosing with several pills of Fioricet. Patient clarifies that she overdosed with suicidal intention at that moment. She denies suicidal ideation and depression, but in my opinion patient could potentially be minimizing her symptomatology of depression and also for their psychosocial and psychiatric collateral information and assessment is needed in order to make a safe discharge. Patient will be transferred to psychiatry once medically stable. No psychotropics at this moment. Continue CIWA protocol due to Fioricet abuse. ICD Code: F43.21 Assessment & Plan Estimated LOS: days Justification for Cont. Inpt. Patient has a reason highly lethal suicidal attempt by overdosing with Fioricet , needs psychiatric hospitalization for stabilization and safety. Will remain with a sitter in the medical floor. Dawit Peralta MD Sep 27, 2016 14:28
--- NOTE | 2016-09-27 14:42 | HHI.DS ---
Discharge Summary Admission Date Sep 25, 2016 at 11:43 Discharge Date: Sep 27, 2016 Admitting Diagnosis Tylenol Toxicity, PSA, Suicidal Ideation (1) Tylenol toxicity ICD Code: T39.1X1A (2) Polysubstance abuse ICD Code: F19.10 Diagnosis: Principal (3) Toxic encephalopathy ICD Code: G92 Diagnosis: Principal Procedures none Brief History - From Admission Written by Rachell Morgan, acting as scribe for Dr. Santos on 09/25/16 at 12:25. This note was transcribed by scribYudelka NEVAREZ. I, Dr. Kristina Santos personally performed the history, physical exam, and medical decision making; and confirmed the accuracy of the information in the transcribed note. Authenticated by Dr. Kristina Santos on 09/25/16 at 12:25. 46-year-old female with history of polysubstance abuse, IVDU, presents to the emergency room 09/25 under Barrientos Act. The patient awake, alert, oriented to [facility] , [facility] in [place], [place], [facility], and the year however patient with tangential thoughts, rambling speech, not making much sense; therefore history is very limited. She admits to taking her Effexor, Synthroid , and a "stomach pill". The patient denies taking any illicit drugs recently however states her typical drug of choice is crystal meth but now her turned her onto crack. Per [employer], patient admitted earlier that she used meth today. The patient became agitated during conversation, pulled out her IV, flung the IV across the room, and ran off to the bathroom where she started crying. No further history was able to be obtained. Per ER MD note, the patient told him her came home yesterday with crack cocaine and they had a disagreement over it. She says her asked her to go to sleep and she refused, causing a disagreement and him to call the police. She also repeatedly stated that her and mom were trying to get her in trouble. CBC/BMP: 09/26/16 0448 09/26/16 1516 Significant Findings Laboratory Tests Test 09/25/16 09/25/16 09/25/16 09/25/16 09:30 09:45 14:35 19:46 Urine Barbiturates Screen POS (NEG) Urine Cocaine Screen POS (NEG) Urine Cannabinoids Screen POS (NEG) Potassium Level 3.4 MEQ/L (3.5-5.1) Chloride Level 109 MEQ/L (98-107) Estimat Glomerular Filtration 64 ML/MIN (>89) 72 ML/MIN (>89) Rate Random Glucose 123 MG/DL 107 MG/DL (74-106) (74-106) Acetaminophen Level 51.2 MCG/ML 8.6 MCG/ML LESS THAN 2.0 (10.0-30.0) (10.0-30.0) MCG/ML (10.0-30.0) Phenobarbital Level LESS THAN 2.1 MCG/ML (15.0-40.0) Prothrombin Time 12.0 SEC (9.8-11.6) Test 09/26/16 09/26/16 09/27/16 04:48 15:16 04:54 Red Blood Count 3.93 MIL/MM3 (4.00-5.30) Lymphocytes (%) (Auto) 64.4 % (9.0-44.0) Monocytes (%) (Auto) 8.6 % (0.0-8.0) Neutrophils # (Auto) 1.3 TH/MM3 (1.8-7.7) Potassium Level 3.4 MEQ/L (3.5-5.1) Chloride Level 111 MEQ/L 112 MEQ/L (98-107) (98-107) Random Glucose 72 MG/DL 116 MG/DL (74-106) (74-106) Albumin 3.2 GM/DL 2.9 GM/DL (3.4-5.0) (3.4-5.0) Calcium Level 8.4 MG/DL (8.5-10.1) Aspartate Amino Transf 14 U/L (15-37) (AST/SGOT) Total Protein 5.7 GM/DL (6.4-8.2) Acetaminophen Level 2.2 MCG/ML 2.9 MCG/ML (10.0-30.0) (10.0-30.0) PE at Discharge GENERAL: NAD, A&Ox3 HEAD: Normocephalic. NECK: Supple, trachea midline. No lymphadenopathy. EYES: No scleral icterus. No injection or drainage. CARDIOVASCULAR: Regular rate and rhythm without murmurs, gallops, or rubs. RESPIRATORY: Breath sounds equal bilaterally. No accessory muscle use. GASTROINTESTINAL: Abdomen soft, non-tender, nondistended. MUSCULOSKELETAL: No cyanosis, or edema. SKIN: Warm and dry. NEURO: No focal neurological deficitis. Hospital Course Mrs. Cheng is a 46-year-old female. She is admitted secondary to Tylenol overdose which was acquired via overdose of urosepsis. On admission she had toxic encephalopathy and Tylenol toxicity. Liver functions were monitored and she was treated for Tylenol toxicity. Tylenol levels are normalized, her mentation is also normalized. She remains high risk for suicide and needs further psychiatric care. She is medically cleared and stable for discharge today. Pt Condition on Discharge: Stable Discharge Disposition: Disc to Psych Care Fac Discharge Time: <= 30 minutes Discharge Instructions DIET: Follow Instructions for: As Tolerated, No Restrictions Activities you can perform: Regular-No Restrictions Follow up Referrals: PCP Follow-up - 1 Week Continued Medications: Levothyroxine (Synthroid) 50 Mcg Tab 50 MCG PO DAILY Thyroid #30 Ref 0 TAB Simvastatin (Simvastatin) 40 Mg Tab 40 MG PO HS Cholesterol Management #30 Ref 0 TAB Venlafaxine (Effexor) 100 Mg Tab 300 MG PO DAILY #60 Ref 0 TAB Discontinued Medications: Olzhgsvlfv-Hfdntvjlwqmqe-Zimswhga (Fioricet) 50-300-40 Mg Cap 1 CAP PO Q6H PRN HEADACHE Ref 0 CAP Maximilian Padilla MD Sep 27, 2016 14:42
[2016-09-27 15:51] LABS: ANION GAP 6 MEQ/L (5-15); AST (GOT) 13 U/L (15-37); BICARBONATE 25.9 MEQ/L (21.0-32.0); BLOOD UREA NITROGEN 9 MG/DL (7-18); CHLORIDE 110 MEQ/L (98-107); GLOMERULAR FILTRATION RATE 102 ML/MIN (>89); POTASSIUM 3.8 MEQ/L (3.5-5.1); SODIUM (NA) 142 MEQ/L (136-145)
[2016-09-27 15:54] LABS: ALKALINE PHOSPHATASE 61 U/L (45-117); ALT (GPT) 15 U/L (10-53); TOTAL BILIRUBIN ADULT 0.1 MG/DL (0.2-1.0)
[2016-09-27 16:00] VITALS: BP 127/84; PULSE 57; RESP 18; TEMP 95.7; O2SAT 98
== END 2016-09-27 19:11 ==
LOC: NEPE 09:01 → INTOOBSV 11:43 → NEDA 11:43 → N07B 15:56 → UNDODISIN 09-27 19:11
PROVIDERS: ADMIT Hospitalist; ATTEND Hospitalist
DX: T39.1X1A Poisoning by 4-Aminophenol derivatives, accidental (unintentional), initial encounter (principal); F19.10 Other psychoactive substance abuse, uncomplicated; G92 Toxic encephalopathy; F19.14 Other psychoactive substance abuse with psychoactive substance-induced mood disorder; F43.21 Adjustment disorder with depressed mood; R45.851 Suicidal ideations; F14.10 Cocaine abuse, uncomplicated; R94.31 Abnormal electrocardiogram [ECG] [EKG]; E87.6 Hypokalemia; R53.81 Other malaise; R45.1 Restlessness and agitation; E78.5 Hyperlipidemia, unspecified; E03.9 Hypothyroidism, unspecified; F17.200 Nicotine dependence, unspecified, uncomplicated; Z79.899 Other long term (current) drug therapy
CPT/HCPCS: 96372; 99291; G0378; 80053; 80076; 80184; 80307; 85025; 85610; 85730; 93005; J1650; J2060; J7030

== ENCOUNTER 2016-09-27 19:20 | Inpatient (IN) | payer MEDICAID, OTHER ==
[~2016-09-27] VITALS: Ht 157.5 cm; Wt 52.7 kg
[~2016-09-27 19:20] MED LIST changes: -NAPR500 PO
[2016-09-27 20:43] VITALS: BP 140/80; PULSE 90; RESP 18; TEMP 97.9; O2SAT 97
[2016-09-27] MEDS ORDERED: LORazepam 2 MG/ML VIAL IM PRN (20:45)
[2016-09-27] MEDS ORDERED: ALUMINUM/MAGNESIUM/SIMETH 30 ML CUP PO PRN (20:45)
[2016-09-27] MEDS ORDERED: MAGNESIUM HYDROXIDE SUSP 30 ML CUP PO PRN (20:45)
[2016-09-27] MEDS ORDERED: LORazepam 1 MG TAB PO PRN (20:45)
[2016-09-27] MEDS ORDERED: ACETAMINOPHEN 325 MG TAB PO PRN (20:45)
[2016-09-27] MEDS: IBUPROFEN 600 MG TAB PO PRN (21:46)
[2016-09-28 06:10] VITALS: BP 123/66; PULSE 52; RESP 18; TEMP 97.9; O2SAT 98
[2016-09-28] MEDS: NICOTINE 21 MG/24 HR PATCH T-DERMAL SCH (08:26)
[2016-09-28 09:42] LABS: ANION GAP 7 MEQ/L (5-15); BICARBONATE 25.6 MEQ/L (21.0-32.0); BLOOD UREA NITROGEN 10 MG/DL (7-18); CHLORIDE 107 MEQ/L (98-107); GLOMERULAR FILTRATION RATE 122 ML/MIN (>89); POTASSIUM 3.8 MEQ/L (3.5-5.1); SODIUM (NA) 140 MEQ/L (136-145)
[2016-09-28 09:46] LABS: HDL CHOLESTEROL 35.1 MG/DL (40.0-60.0); LDL CHOLESTEROL 114 MG/DL (0-99)
--- NOTE | 2016-09-28 11:52 | HHI.HP ---
Provisional Diagnosis Admission Date Sep 27, 2016 at 19:20 Wainwright I. 1. Adjustment disorder with disturbance of emotions and conduct 2. Polysubstance abuse Wainwright II. Deferred Wainwright V. GAF is 46 presently Certification of Person's Competence To Provide Express and Informed Consent I have personally examined Krista Cheng , a person being served at [facility] on, Sep 28, 2016 11:52. Express and informed consent means consent voluntarily given in writing, by a competent person, after sufficient explanation and disclosure of the subject matter involved to enable the person to make a knowing and willful decision without any element of force, fraud, deceit, duress, or other form of constraint or coercion. This person is 18 years of age or older, is not now known to be incompetent to consent to treatment with a guardian advocate, and does not have a health care surrogate or proxy currently making medical treatment decisions. I have found this person to be one of the following: [x] Competent to provide express and informed consent, as defined above, for voluntary admission to this facility and is competent to provide express and informed consent for treatment. He/she has the consistent capacity to make well reasoned, willful, and knowing decisions concerning his or her medical or mental health treatment. The person fully and consistently understands the purpose of the admission for examination/placement and is fully capable of personally exercising all rights assured [place] Incompetent to provide express and informed consent to voluntary admission, and this is incompetent to provide express and informed consent to treatment. The person must be transferred to involuntary status and a petition for a guardian advocate filed with the Circuit Court. [] Refusing to provide express and informed consent to voluntary admission but is competent to provide express and informed consent for treatment. The person must be discharged or transferred to involuntary status. Form shall be completed within 24 hours of a person's arrival at the receiving facility and filed in the clinical record of each person: 1. Admitted on a voluntary basis 2. Permitted to provide express and informed consent to his/her own treatment 3. Allowed to transfer from involuntary to voluntary status 4. Prior to permitting a person to consent to his or her own treatment after having been previously found incompetent to consent to treatment. History of Present Illness Capacity: Has Capacity HPI Ms. Cheng is a 46 year-old female with a reported history of bipolar disorder and PTSD and a chart history of substance use disorder who presented initially as a Barrientos act following a polydrug overdose on 09/25. The patient was initially admitted to the medical floor and was seen in consultation by Dr. Peralta, who on re-evaluation recommended admission to the inpatient psychiatric unit. Initial urine toxicology was positive for barbiturates, cocaine and cannabinoids. Reviewing the electronic medical record, I see no prior psychiatric contact within our system. Patient seen and examined with nurse. Chart reviewed. Case discussed with nursing staff. On my examination today, patient reports that she has been off of her proper psychotropics since she was jailed about a month ago on violation of vasquez theft charges. She says that she normally takes Effexor at a dose of 300 mg daily. She says that off of her medications she feels "unbalanced" and says that "my mind goes crazy." She says that she has been feeling depressed, hopeless and worthless. Sleep is reportedly somewhat poor. She began to entertain suicidal ideations shortly before making her overdose, which was apparently impulsive in nature, although she did select a time when the likelihood of rescue was lower by her report. She denies any suicidal ideation now. No hypomanic or manic symptoms. Denies any audiovisual hallucinations. No delusional material. The remainder of the psychiatric ROS is negative. Past psychiatric history: The patient reports prior diagnoses as noted above. She apparently saw Dr. Pires for the first time on 09/15 but was not restarted on medications. She also has a psychotherapist by the name of Adele. She says that her most recent psychiatric admission was in the . Her most recent suicide attempt was in 1991 when she cut her throat. She says that she has done reasonably well on Effexor monotherapy but is also interested in considering augmentation of the Effexor with Abilify. Family history: Patient reports that her mother and 2 daughters both have issues with cutting. No other reported family psychiatric history. Chemical dependency history: Patient admits to regular use of cannabis and occasional use of cocaine. She denies any abuse of alcohol, benzodiazepines or opiates. She says that the barbiturates were from Fioricet, which she is prescribed for migraine headache she says. Denies any other substance use. Social history: Patient reports that she lives with her . She has 2 daughters and 1 son. She has 7 grandchildren. He has a ninth grade education. She denies any history. Denies any active legal issues. She says that she was recently jailed for a probation violation following a vasquez theft. Denies any access to guns or firearms. She is a [employer]. Review of Systems Except as stated in HPI: all other systems reviewed are Neg Past Psych History Psychological trauma history Patient reports that her best friend in April and she viewed this as traumatic Violence risk - others (6 mos) Lower imminent risk. No homicidal ideation. No known history of violent crime. Violence risk - self (6 mos) Suspect component of chronic risk related to substance use. Main purpose of this admission will be to observe for acute risk factors. Patient denies suicidal ideation presently. Substance Abuse History Drugs/Alcohol past 12 months See above Past Family Social History Coded Allergies: Keflex (Verified Allergy, Intermediate, HIVES, 06/16/16) Past Medical History See electronic medical record Discontinued Reported Medications Venlafaxine (Effexor)100 Mg [id number] Mg PO DAILY #60 TAB Ref 0 06/16/16 Levothyroxine (Synthroid)50 Mcg Tab50 Mcg PO DAILY #30 TAB Ref 0 06/16/16 Simvastatin 40 Mg Tab40 Mg PO HS #30 TAB Ref 0 06/16/16 Kfowkdbswh-Pvaemspbgrvqq-Gmwtotag (Fioricet)50-300-40 Mg Cap1 Cap PO Q6H PRN ( HEADACHE) Ref 0 06/16/16 Discontinued Scripts Naproxen (Naprosyn)500 Mg Rpy642 Mg PO BID PRN (PAIN SCALE 1 TO 10) #20 TAB Prov:Winston Maddox MD 06/16/16 Current Medications Medications (Trade) Dose Ordered Sig/Ganesh Route Start Time Stop Time Status Last Admin (Ativan) 1 mg Q6H PRN PO 09/27/16 20:45 09/27/16 21:46 (Ativan Inj) 1 mg Q6H PRN IM 09/27/16 20:45 (Milk Of Magnesia Liq) 30 ml DAILY PRN PO 09/27/16 20:45 (Mag-Al Plus Susp Liq) 30 ml Q6H PRN PO 09/27/16 20:45 (Habitrol 21 Mg Patch.24 Hr) 1 patch DAILY T-DERMAL 09/28/16 09:00 09/28/16 08:26 Miscellaneous Information 1 HS T-DERMAL 09/28/16 21:00 (Motrin) 600 mg Q6H PRN PO 09/27/16 21:15 09/27/16 21:46 Family History See above Social History See above Patient's Strengths (min. 2) In a monitored setting. Verbally fluent. Physical Exam Physical examination completed on the medical floor by the hospitalist team. On my examination today, the patient appears to be in no acute physical distress. No abnormal motor movements noted. Laboratories and vital signs reviewed: Vital Signs Vital Signs Date Time Temp Pulse Resp B/P Pulse Ox O2 Delivery O2 Flow Rate FiO2 09/28/16 06:10 97.9 52 18 123/66 98 Lab Results Item Value Date Time White Blood Count 5.0 TH/MM3 09/26/16 0448 Hemoglobin 12.3 GM/DL 09/26/16 0448 Platelet Count 204 TH/MM3 09/26/16 0448 Sodium Level 140 MEQ/L 09/28/16 0739 Potassium Level 3.8 MEQ/L 09/28/16 0739 Chloride Level 107 MEQ/L 09/28/16 0739 Carbon Dioxide Level 25.6 MEQ/L 09/28/16 0739 Blood Urea Nitrogen 10 MG/DL 09/28/16 0739 Creatinine 0.54 MG/DL 09/28/16 0739 Aspartate Amino Transf (AST/SGOT) 13 U/L L 09/27/16 1458 Alanine Aminotransferase (ALT/SGPT) 15 U/L 09/27/16 1458 Alkaline Phosphatase 61 U/L 09/27/16 1458 Urine Barbiturates Screen POS H 09/25/16 0930 Urine Cocaine Screen POS H 09/25/16 0930 Urine Cannabinoids Screen POS H 09/25/16 0930 Ethyl Alcohol Level LESS THAN 3 MG/DL 09/25/16 0945 Mental Status Examination Patient is casually dressed. She is fairly well groomed. She has numerous tattoos. No motor abnormalities noted. No signs of withdrawal noted. Speech is within normal limits for rate, tone and volume. Language and fund of knowledge seem average. Focus and concentration intact. Memory grossly intact on clinical exam. Mood remains little bit depressed but affect is fairly full and reactive. Thought process linear. No loosening of associations. No evident delusional material. Denies audiovisual hallucinations. Denies suicidal or homicidal ideation. Insight and judgment are fair to poor. Assessment & Plan Problem List: (1) Adjustment disorder with mixed disturbance of emotions and conduct ICD Code: F43.25 (2) Polysubstance abuse ICD Code: F19.10 Assessment & Plan This is a 46-year-old female with psychiatric history as detailed above who presents following a polydrug overdose under Barrientos act. On my evaluation today, the patient reports that she has been off of her psychotropic medications for at least the last month. She says that she does well on Effexor monotherapy but was interested in considering adding Abilify. She remained somewhat depressed but denies suicidal ideation at this time. I suspect that substance use was a significant component of her presenting overdose and have recommended chemical dependency evaluation and treatment on discharge. I will plan to admit the patient to the inpatient psychiatric unit for the purpose of resuming medications and for a brief period of observation. Admit inpatient. Voluntary status. Consult of the hospital is to continue to follow from the medical floor. Check beta hCG and TSH. Effexor 75 mg daily with plans to titrate. Initiate Abilify 2 mg daily for augmentation of the Effexor. I discussed the risks and benefits and alternatives of these medications with the patient in detail. Atarax as needed for anxiety, Benadryl as needed for sleep. Vitals every shift. Counselor to see. Disposition planning. Estimated length of stay: 3-5 days. Discharge Planning Pending stabilization Request HC Surrog/Guard Advoc?: No Landon Jauregui MD Sep 28, 2016 11:52
[2016-09-28] MEDS: IBUPROFEN 600 MG TAB PO PRN (12:49)
[2016-09-28] MEDS ORDERED: hydrOXYzine HCL 50 MG TAB PO PRN (13:00)
[2016-09-28 13:02] LABS: HEMOGLOBIN A1b 0.9 %; HEMOGLOBIN Ao 86.1 %; HEMOGLOBIN F 1.1 %; HEMOGLOBIN LA1C 1.9 %; HEMOGLOBIN P3 3.4 %
[2016-09-28 13:25] LABS: BHCG SCREEN QUALITATIVE LESS THAN 1 MIU/ML (0-5)
[2016-09-28 15:27] VITALS: BP 109/67; PULSE 52; RESP 18; TEMP 96.8; O2SAT 100
[2016-09-28] MEDS: VENLAFAXINE HCL XR 75 MG CAP PO SCH (15:53)
--- NOTE | 2016-09-28 15:53 | PD.CONS ---
HPI Service [facility] Hospitalists Consult Requested By Dr. Jauregui Reason for Consult Medical management Primary Care Physician Thor Sandoval Diagnoses: History of Present Illness The patient is a 46-year-old female with a past medical history of bipolar disorder who is presenting to the hospital after an overdose of multiple medications including Tylenol. She was treated for Tylenol toxicity and transferred to psychiatry once stabilized. The patient is concerned about being resumed on her thyroid medication as she said she was not getting it. Otherwise she is feeling well and has no acute complaints. She says she was suicidal because her brother from a drug overdose earlier this year and she had a hard time dealing with that. She also says that she was taken off of her medications a few months ago because she was in correction for a parole violation. She says she tends to have irrational behavior when taken off her medications. She is looking forward to being stabilized on her medications. She also mentions she is on pantoprazole for chronic abdominal pain. She says she is prone to constipation. She has no other acute concerns at this time. Review of Systems Except as stated in HPI: all other systems reviewed are Neg (102) Past Family Social History Allergies: Coded Allergies: Keflex (Verified Allergy, Intermediate, HIVES, 06/16/16) Past Medical History Hypothyroidism Hyperlipidemia Depression' Bipolar disorder Past Surgical History Tubal ligation Appendectomy Cholecystectomy Hiatal hernia repair Active Ordered Medications Current Medications Medications (Trade) Dose Ordered Sig/Ganesh Route Start Time Stop Time Status Last Admin (Milk Of Magnesia Liq) 30 ml DAILY PRN PO 09/27/16 20:45 (Mag-Al Plus Susp Liq) 30 ml Q6H PRN PO 09/27/16 20:45 (Habitrol 21 Mg Patch.24 Hr) 1 patch DAILY T-DERMAL 09/28/16 09:00 09/28/16 08:26 Miscellaneous Information 1 HS T-DERMAL 09/28/16 21:00 (Motrin) 600 mg Q6H PRN PO 09/27/16 21:15 09/28/16 12:49 (Synthroid) 50 mcg DAILY@0600 PO 09/29/16 06:00 (Effexor Xr) 75 mg DAILY PO 09/28/16 12:30 (Abilify) 2 mg DAILY PO 09/29/16 09:00 (Atarax) 50 mg Q6H PRN PO 09/28/16 13:00 (Benadryl) 50 mg HS PRN PO 09/28/16 20:30 Family History Liver cancer Pancreatitis Social History The pt smokes 2 packs daily, she does not drink. She does use meth and MJ occasionally. Physical Exam Vital Signs Vital Signs Date Time Temp Pulse Resp B/P Pulse Ox O2 Delivery O2 Flow Rate FiO2 09/28/16 15:27 96.8 52 18 109/67 100 09/28/16 06:10 97.9 52 18 123/66 98 09/27/16 20:43 97.9 90 18 140/80 97 Physical Exam GENERAL: This is a well-nourished, well-developed patient, in no apparent distress. SKIN: No rashes, ecchymoses or lesions. Cool and dry. HEAD: Atraumatic. Normocephalic. No temporal or scalp tenderness. EYES: Pupils equal round and reactive. Extraocular motions intact. No scleral icterus. No injection or drainage. ENT: Nose without bleeding, purulent drainage or septal hematoma. Throat without erythema, tonsillar hypertrophy or exudate. Uvula midline. Airway patent. NECK: Trachea midline. No JVD or lymphadenopathy. Supple, nontender, no meningeal signs. CARDIOVASCULAR: Regular rate and rhythm without murmurs, gallops, or rubs. RESPIRATORY: Clear to auscultation. Breath sounds equal bilaterally. No wheezes , rales, or rhonchi. GASTROINTESTINAL: Abdomen soft, epigastric tenderness, nondistended. No hepato- splenomegaly, or palpable masses. No guarding. MUSCULOSKELETAL: Extremities without clubbing, cyanosis, or edema. No joint tenderness, effusion, or edema noted. NEUROLOGICAL: Awake and alert. Cranial nerves II through XII intact. Motor and sensory grossly within normal limits. Five out of 5 muscle strength in all muscle groups. Normal speech. PSYCH: Mood and affect appropriate. Laboratory Laboratory Tests Test 09/28/16 07:39 Sodium Level 140 Potassium Level 3.8 Chloride Level 107 Carbon Dioxide Level 25.6 Anion Gap 7 Blood Urea Nitrogen 10 Creatinine 0.54 Estimat Glomerular Filtration 122 Rate Random Glucose 91 Hemoglobin A1c 5.4 Calcium Level 8.9 Triglycerides Level 164 Cholesterol Level 182 LDL Cholesterol 114 HDL Cholesterol 35.1 Cholesterol/HDL Ratio 5.18 Thyroid Stimulating Hormone 0.235 3rd Gen Beta HCG, Qualitative LESS THAN 1 Result Diagram: 09/28/16 0739 Assessment and Plan Assessment and Plan Tylenol toxicity S/p treatment at the main hospital. LFTs normalized. - No further medical management needed at this time. - psych stabilization. Suicidal ideation/ Bipolar disorder S/p overdose. Taken off of medication while in correction. - meds and management per psych. Polysubstance abuse The pt smokes and endorses crack/ MJ. - cessation instruction. - nicotine patch. Hypothyroidism The pt is on levothyroxine as an outpt. TSH is a little low. - check T3/ Free T4. - continue levothyroxine 50 mcg daily. Reduce if needed. Chronic abdominal pain The pt endorses constipation. - bowel regimen. - continue PPI. DVT prophylaxis: Ambulation Discussed Condition With Pt, nurse Graeme Romero DO Sep 28, 2016 15:53
[2016-09-28] MEDS: SENNOSIDES 8.6 MG TAB PO SCH (16:54)
[2016-09-28] MEDS: PANTOPRAZOLE SOD 40 MG DELAYED RELEASE TAB PO SCH (16:54)
[2016-09-28 18:11] LABS: FREE T3 2.38 PG/ML (2.18-3.98); FREE T4 1.11 NG/DL (0.76-1.46)
[2016-09-28] MEDS: REMOVE OLD NICOTINE PATCH T-DERMAL SCH (20:10)
[2016-09-28] MEDS: DOCUSATE SODIUM 100 MG CAP PO SCH (20:22)
[2016-09-28] MEDS ORDERED: diphenhydrAMINE HCL 50 MG CAP PO PRN (20:30)
[2016-09-29] MEDS: LEVOTHYROXINE SODIUM 50 MCG TAB PO SCH (05:23)
[2016-09-29 05:38] VITALS: BP 133/85; PULSE 58; RESP 16; O2SAT 98
[2016-09-29 06:52] VITALS: TEMP 98.1
--- NOTE | 2016-09-29 09:53 | HHI.PYPN ---
Subjective Remarks Patient seen and examined with nurse. Chart reviewed. Case discussed with nursing staff who reports that the patient passed an uneventful evening and has been socializing more on the unit today. On my examination today, the patient describes her mood as "pretty good." Sleep was somewhat poor. She denies any psychotic symptoms including A/V hallucinations. She denies any suicidal ideation. No physical symptoms. Denies side effects from medications. Does request a hypnotic; she has Benadryl PRN insomnia but did not utilize this last night. She is hopeful for discharge by or Tuesday at the latest. Review of Systems Except as stated in HPI: all other systems reviewed are Neg Objective Alert: Yes [place]: Person (O x 3) Mood: Calm Affect: Appropriate Memory Intact: Comment (intact) Hallucinations: Other (No AVH) Delusions: No Delusion Type: Other (No delusions) Suicidal: Ideation (Denies SI) Homicidal: Ideation (No HI) Insight/Judgment Poor Remarks No motor abnormalities noted. Thought process linear. Grooming and hygiene good. Labs Labs reviewed. TSH low but free T3/T4 within normal limits. Vitals/IOs Vital Signs Date Time Temp Pulse Resp B/P Pulse Ox O2 Delivery O2 Flow Rate FiO2 09/29/16 06:52 98.1 09/29/16 05:38 58 16 133/85 98 Assessment & Plan Problem List: (1) Adjustment disorder with mixed disturbance of emotions and conduct ICD Code: F43.25 (2) Polysubstance abuse ICD Code: F19.10 Assessment & Plan Continue Effexor 75 mg daily with plans to titrate. Patient is due to start first dose of Abilify this morning. Patient does have Benadryl available as needed for sleep. Hospitalist input noted and appreciated. Continue to monitor on the inpatient unit. Continue other medications and care as ordered. Justification for Cont. Inpt. Monitoring for impairments in safety, so far none. Discharge Planning Anticipate discharge within the next day or 2. Request HC Surrog/Guard Advoc?: No Landon Jauregui MD Sep 29, 2016 09:53
[2016-09-29] MEDS: PANTOPRAZOLE SOD 40 MG DELAYED RELEASE TAB PO SCH (10:20)
[2016-09-29] MEDS: ARIPiprazole 2 MG TAB PO SCH (10:20)
[2016-09-29] MEDS: VENLAFAXINE HCL XR 75 MG CAP PO SCH (10:20)
[2016-09-29] MEDS: SENNOSIDES 8.6 MG TAB PO SCH (10:20)
[2016-09-29] MEDS: NICOTINE 21 MG/24 HR PATCH T-DERMAL SCH (10:20)
[2016-09-29] MEDS: DOCUSATE SODIUM 100 MG CAP PO SCH ×2 (10:20→20:31)
[2016-09-29 18:00] VITALS: BP 134/82; PULSE 63; RESP 17; TEMP 97.1; O2SAT 97
[2016-09-29] MEDS: REMOVE OLD NICOTINE PATCH T-DERMAL SCH (20:35)
[2016-09-30] MEDS: LEVOTHYROXINE SODIUM 50 MCG TAB PO SCH (05:39)
[2016-09-30 05:51] VITALS: BP 118/77; PULSE 55; RESP 16; TEMP 97.9; O2SAT 97
[2016-09-30] MEDS: SENNOSIDES 8.6 MG TAB PO SCH (09:00)
[2016-09-30] MEDS: REMOVE OLD NICOTINE PATCH T-DERMAL SCH (09:22)
[2016-09-30] MEDS: NICOTINE 21 MG/24 HR PATCH T-DERMAL SCH (09:22)
[2016-09-30] MEDS: PANTOPRAZOLE SOD 40 MG DELAYED RELEASE TAB PO SCH (09:23)
[2016-09-30] MEDS: ARIPiprazole 2 MG TAB PO SCH (09:23)
[2016-09-30] MEDS: VENLAFAXINE HCL XR 75 MG CAP PO SCH (09:23)
[2016-09-30] MEDS: DOCUSATE SODIUM 100 MG CAP PO SCH (09:24)
[2016-09-30] MEDS ORDERED: SENN8.6T15 PO (11:57)
[2016-09-30] MEDS ORDERED: VENL75XR PO (11:57)
[2016-09-30] MEDS ORDERED: PANT40TA3 PO (11:57)
[2016-09-30] MEDS ORDERED: DOCU1CAP39 PO (11:57)
[2016-09-30] MEDS ORDERED: LEVO.05 PO (11:57)
--- NOTE | 2016-09-30 11:57 | HHI.DS ---
Psychiatry Discharge Summary Inpatient Psychiatric care?: Yes Advance Directive: No Reason Not Provided: Due to Patient Condition Mental Health AdvanceDirective: No Health Care Proxy: No Admission Admission Date Sep 27, 2016 at 19:20 Admission Diagnosis: (1) Adjustment disorder with mixed disturbance of emotions and conduct ICD Code: F43.25 (2) Polysubstance abuse ICD Code: F19.10 Brief History Ms. Cheng is a 46 year-old female with a reported history of bipolar disorder and PTSD and a chart history of substance use disorder who presented initially as a Barrientos act following a polydrug overdose on 09/25. The patient was initially admitted to the medical floor and was seen in consultation by Dr. Peralta, who on re-evaluation recommended admission to the inpatient psychiatric unit. Initial urine toxicology was positive for barbiturates, cocaine and cannabinoids. Reviewing the electronic medical record, I see no prior psychiatric contact within our system. Patient seen and examined with nurse. Chart reviewed. Case discussed with nursing staff. On my examination today, patient reports that she has been off of her proper psychotropics since she was jailed about a month ago on violation of vasquez theft charges. She says that she normally takes Effexor at a dose of 300 mg daily. She says that off of her medications she feels "unbalanced" and says that "my mind goes crazy." She says that she has been feeling depressed, hopeless and worthless. Sleep is reportedly somewhat poor. She began to entertain suicidal ideations shortly before making her overdose, which was apparently impulsive in nature, although she did select a time when the likelihood of rescue was lower by her report. She denies any suicidal ideation now. No hypomanic or manic symptoms. Denies any audiovisual hallucinations. No delusional material. The remainder of the psychiatric ROS is negative. Past psychiatric history: The patient reports prior diagnoses as noted above. She apparently saw Dr. Pires for the first time on 09/15 but was not restarted on medications. She also has a psychotherapist by the name of Adele. She says that her most recent psychiatric admission was in the . Her most recent suicide attempt was in 1991 when she cut her throat. She says that she has done reasonably well on Effexor monotherapy but is also interested in considering augmentation of the Effexor with Abilify. Family history: Patient reports that her mother and 2 daughters both have issues with cutting. No other reported family psychiatric history. Chemical dependency history: Patient admits to regular use of cannabis and occasional use of cocaine. She denies any abuse of alcohol, benzodiazepines or opiates. She says that the barbiturates were from Fioricet, which she is prescribed for migraine headache she says. Denies any other substance use. Social history: Patient reports that she lives with her . She has 2 daughters and 1 son. She has 7 grandchildren. He has a ninth grade education. She denies any history. Denies any active legal issues. She says that she was recently jailed for a probation violation following a vasquez theft. Denies any access to guns or firearms. She is a [employer]. Tobacco Use In Past 30 Days: 5 or More Cigarettes/Day Alcohol Use: Never Hospital Course Patient was admitted to a locked, inpatient psychiatric unit. Appropriate precautions were in place throughout patient's hospital stay. A general medical consultation was obtained. Patient was seen and examined daily on the unit by psychiatry and also visited by counselor. Psychotropic medications were adjusted. Patient tolerated medication changes well without side effects. Patient had improvement in presenting psychiatric symptomatology during the course of her hospital stay. There was no evidence of any suicidality or homicidality on the inpatient unit. Patient remained in good behavioral control. She has participated well in unit activities. On the day of discharge : Patient seen and examined with nurse. Chart reviewed. Case discussed with nursing staff. Patient is noted by nursing staff to be in good spirits and has been no behavioral problem overnight. On my examination today, the patient presents as euthymic. She is requesting discharge from the inpatient psychiatric unit. She feels much improved versus admission. She denies any suicidal or homicidal ideation, intent or plan. She is future oriented. She volunteers that she plans to pursue chemical dependency rehabilitation on discharge. No ongoing depressive symptoms. No hypomanic or manic symptoms noted. Denies audiovisual hallucinations, and I can elicit no delusional beliefs. She denies side effects from medications. We discussed titrating her Effexor after discharge as ordered below. She has no physical complaints. Weighing the acute, chronic, and protective factors and based on the available evidence, I slide fastener repairer to a reasonable degree of medical certainty that the patient is at low imminent risk of harm to self or others from a mental illness as defined under the Barrientos act and her level of function is adequate for outpatient care. Patient has maximized benefit from this inpatient psychiatric hospital stay and will be discharged today with psychiatric follow-up as arranged by counselor. Patient is also to follow-up with primary care. I counseled the patient regarding warning signs for need to return to the psychiatric emergency room as part of the general safety plan. Results Blood Pressure 118 / 77 Vital Signs Date Time Temp Pulse Resp B/P Pulse Ox O2 Delivery O2 Flow Rate FiO2 09/30/16 05:51 97.9 55 16 118/77 97 Laboratory Tests Test 09/28/16 07:39 Triglycerides Level 164 MG/DL (42-150) LDL Cholesterol 114 MG/DL (0-99) HDL Cholesterol 35.1 MG/DL (40.0-60.0) Thyroid Stimulating Hormone 0.235 uIU/ML 3rd Gen (0.358-3.740) Laboratory Results Test 09/28/16 07:39 Hemoglobin A1c 5.4 % (4.3-6.0) Triglycerides Level 164 MG/DL (42-150) Cholesterol Level 182 MG/DL (120-200) LDL Cholesterol 114 MG/DL (0-99) HDL Cholesterol 35.1 MG/DL (40.0-60.0) Summary of Procedures None done Imaging None done Pending results at discharge: No Medications # of Antipsychotic meds at D/C: 1 Approp Antipsych med options 1 - Minimum of three failed multiple trials of monotherapy. 2 - Documented plan to taper to monotherapy due to previous use of multiple meds OR cross-taper in progress at D/C. 3 - Documentation of augmentation of Clozapine. 4 - Justification other than those listed in allowable values 1-3, document here : Discharge Discharge Date: Sep 30, 2016 Discharge Diagnosis: (1) Adjustment disorder with mixed disturbance of emotions and conduct Diagnosis: Principal (resolved) ICD Code: F43.25 (2) Polysubstance abuse Diagnosis: Secondary (counseled to quit) ICD Code: F19.10 GAF on discharge is 60. Mental Status Exam at Disch Patient is casually dressed. She is well groomed. She is awake and alert and oriented 3. No evidence of delirium. No motor abnormalities noted. No signs of withdrawal noted. Speech is within normal limits for rate, tone and volume. Language and fund of knowledge seem average. Focus and concentration intact. Memory grossly intact on clinical exam. Mood is good and affect is euthymic, full and reactive. Thought process linear. No loosening of associations. No evident delusional material. Denies audiovisual hallucinations. Denies suicidal or homicidal ideation, intent or plan. Insight and judgment are fair. Pt Condition on Discharge: Stable Discharge Disposition: Discharge Home Discharge Instructions Diet Instructions: As Tolerated, No Restrictions Activities you can perform: Weight Bearing as Braxton Scheduled Appointment: as per counselor's notes New Medications: Docusate Sodium (Dok) 100 Mg Cap 100 MG PO BID Discontinue if you experience loose stools. Constipation Days 15 Ref 1 CAP Levothyroxine (Synthroid) 50 Mcg Tab 50 MCG PO DAILY@0600 Hypothyroidism Days 15 Ref 1 TAB Pantoprazole (Pantoprazole) 40 Mg Tab 40 MG PO DAILY Reflux Days 15 Ref 1 TAB Sennosides (Senna Lax) 8.6 Mg Tab 17.2 MG PO DAILY Discontinue if you experience loose stools. Constipation Days 15 Ref 1 TAB Venlafaxine ER 24 HR (Effexor XR 24 HR) 75 Mg Cap 75 MG PO DIRECTED Take 75mg PO daily x 1 week then increase to 150mg PO daily. Mental Health Days 15 Ref 1 CAP Discharge Time <= 30 minutes Discharge/Advance Care Plan Health Problems: (1) Adjustment disorder with mixed disturbance of emotions and conduct (2) Polysubstance abuse Goals to promote your health * To prevent worsening of your condition and complications * To maintain your health at the optimal level Directions to meet your goals Take your medications as prescribed Follow your dietary instruction Follow activity as directed Keep your appointments as scheduled Take your immunizations and boosters as scheduled If your symptoms worsen call your PCP, if no PCP go to Urgent Care Center or Emergency Room For 25/10 questions related to your inpatient stay or results of tests pending at discharge, please contact Dr. Landon Jauregui at Smoking is Dangerous to Your Health. Avoid second hand smoking Landon Jauregui MD Sep 30, 2016 11:57
--- NOTE | 2016-09-30 15:52 | HHI.PR ---
Subjective Remarks Follow-up visit hypothyroidism, polysubstance abuse, chronic abdominal pain. Patient seen and examined today. Reports she is feeling a lot better. States that she will go home today with her . Continues to report chronic abdominal pain and states that she'll follow-up with a new primary care provider and automobile damage field appraiser for endoscopy and colonoscopy. Denies SOB/ dyspnea. Denies chest pain, palpitations, headaches, dizziness. Denies fevers, chills, n/v/d. Denies dysuria. Objective Vitals Vital Signs Date Time Temp Pulse Resp B/P Pulse Ox O2 Delivery O2 Flow Rate FiO2 09/30/16 05:51 97.9 55 16 118/77 97 09/29/16 18:00 97.1 63 17 134/82 97 I/O 09/29/16 09/29/16 09/29/16 09/30/16 09/30/16 09/30/16 07:00 15:00 23:00 07:00 15:00 23:00 Intake Total 12 ml 240 ml Balance 12 ml 240 ml Intake Oral 12 ml 240 ml Result Diagram: 09/28/16 0739 Objective Remarks GENERAL: This is a well-nourished, well-developed patient, in no apparent distress. SKIN: Warm and dry. Multiple tattoos throughout her body. HEENT: Normocephalic. Pupils equal round and reactive. Nose without bleeding. Airway patent. NECK: Trachea midline. No JVD. Supple. CARDIOVASCULAR: Regular rate and rhythm without murmurs, gallops, or rubs. RESPIRATORY: Clear to auscultation. Breath sounds equal bilaterally. No wheezes , rales, or rhonchi. GASTROINTESTINAL: Abdomen soft, nondistended. Bowel Sounds normoactive x4. Tenderness to deep palpation. MUSCULOSKELETAL: Extremities without clubbing, cyanosis, or edema. NEUROLOGICAL: Awake and alert. Oriented to time, place, person. No focal neuro deficit. Moves all extremities. Normal speech. A/P Problem List: (1) Polysubstance abuse ICD Code: F19.10 Status: Acute (2) Adjustment disorder with mixed disturbance of emotions and conduct ICD Code: F43.25 Status: Acute (3) Adjustment disorder with depressed mood ICD Code: F43.21 Status: Acute (4) Tylenol toxicity ICD Code: T39.1X1A Status: Acute Assessment and Plan The patient is a 46-year-old female with a past medical history of bipolar disorder who is presenting to the hospital after an overdose of multiple medications including Tylenol. She was treated for Tylenol toxicity and transferred to psychiatry unit for further evaluation. Consulted for medical management. Tylenol toxicity S/p treatment at the main hospital. LFTs normalized. - No further medical management needed at this time. - psych stabilization. Suicidal ideation/ Bipolar disorder S/p overdose. Taken off of medication while in care home. - meds and management per psych. Polysubstance abuse The pt smokes and endorses crack/ MJ. - cessation instruction - nicotine patch Hypothyroidism The pt is on levothyroxine as an outpt. TSH is a little low. - continue levothyroxine 50 mcg daily - Free T4 1 0.1, free T3 2 0.38, both within normal. Repeat TSH in 3 months as an outpatient - Follow up with PCP Chronic abdominal pain The pt endorses constipation. - bowel regimen. - continue PPI. - Discussed with patient importance of following up with primary care provider and automobile damage field appraiser for EGD and colonoscopy. Agrees with plan and verbalizes understanding. DVT prophylaxis: Ambulation Stable from Hospitalist standpoint. We will sign off. Reconsult as needed. Discussed with patient, nursing Monster Dowling Sep 30, 2016 15:52
== END 2016-09-30 16:00 | disposition home or self-care (01) | DRG 882 ==
LOC: H260 19:20
PROVIDERS: ADMIT Psychiatry & Neurology Psychiatry; ATTEND Psychiatry & Neurology Psychiatry
DX: F43.25 Adjustment disorder with mixed disturbance of emotions and conduct (principal); F14.10 Cocaine abuse, uncomplicated; E03.9 Hypothyroidism, unspecified; F43.23 Adjustment disorder with mixed anxiety and depressed mood; F31.9 Bipolar disorder, unspecified; F43.10 Post-traumatic stress disorder, unspecified; G89.29 Other chronic pain; R10.9 Unspecified abdominal pain; E78.5 Hyperlipidemia, unspecified; F12.10 Cannabis abuse, uncomplicated; F17.210 Nicotine dependence, cigarettes, uncomplicated; T39.1X2A Poisoning by 4-Aminophenol derivatives, intentional self-harm, initial encounter
CPT/HCPCS: 80048; 80053; 80061; 80076; 80184; 80307; 83036; 84439; 84443; 84481; 84703; 85025; 85610; 85730; 93005; J1650; J2060; J7030; Q0163